=== PATIENT | female | born 1950 | race Caucasian/White ===

== ENCOUNTER → 2022-04-07 14:26 | Outpatient (BNVA) | payer OTHER, SELFPAY | PROVIDERS: Visit Provider Emergency Medicine | DX: M79.622 Pain in left upper arm (principal) | CPT/HCPCS: 73030; 73080 ==

== ENCOUNTER 2025-05-27 16:25 | Emergency (ER) | payer OTHER, SELFPAY ==
[2025-05-27 16:31] VITALS: BP 133/73; PULSE 75; RESP 17; TEMP 36.6; O2SAT 98; BMI 29.2
--- NOTE | 2025-05-27 17:06 | XRR_ITS ---
PROCEDURE INFORMATION: Exam: XR Right Knee Exam date and time: 05/27/2025 5:29 PM Age: 75 years old Clinical indication: Injury or trauma; Fall; Blunt trauma; Knee; Right; Additional info: Fall, injury TECHNIQUE: Imaging protocol: Radiologic exam of the right knee. Views: 1 or 2 views. COMPARISON: CR (LOW EXM, ) 05/27/2025 5:27 PM FINDINGS: Bones/joints: Diminished bone mineralization.No acute fracture or dislocation. Marginal and internal osteophytes. Soft tissues: Normal. XR/XR knee RT 1-2V [id number] IMPRESSION: No acute fracture or dislocation.
--- NOTE | 2025-05-27 17:06 | XRR_ITS ---
PROCEDURE INFORMATION: Exam: XR Right Ankle Exam date and time: 05/27/2025 5:27 PM Age: 75 years old Clinical indication: Injury or trauma; Fall; Blunt trauma; Ankle; Right; Additional info: Fall, injury TECHNIQUE: Imaging protocol: Radiologic exam of the right ankle. Views: 3 or more views. COMPARISON: No relevant prior studies available. FINDINGS: Bones/joints: Diminished bone mineralization.No acute fracture or dislocation. Calcaneal enthesophyte. Soft tissues: Regional soft tissue swelling. XR/XR ankle RT min 3V* [id number] IMPRESSION: No acute fracture or dislocation.
--- NOTE | 2025-05-27 17:06 | XRR_ITS ---
PROCEDURE INFORMATION: Exam: XR Left Ankle Exam date and time: 05/27/2025 5:25 PM Age: 75 years old Clinical indication: Injury or trauma; Fall; Blunt trauma; Ankle; Left; Additional info: Fall, injury TECHNIQUE: Imaging protocol: Radiologic exam of the left ankle. Views: 3 or more views. COMPARISON: No relevant prior studies available. FINDINGS: Bones/joints: Diminished bone mineralization.No acute fracture or dislocation. Calcaneal enthesophyte. Soft tissues: Regional soft tissue swelling. XR/XR ankle LT min 3V* [id number] IMPRESSION: No acute fracture or dislocation.
--- NOTE | 2025-05-27 17:06 | XRR_ITS ---
PROCEDURE INFORMATION: Exam: XR Left Shoulder Exam date and time: 05/27/2025 5:22 PM Age: 75 years old Clinical indication: Injury or trauma; Fall; Blunt trauma (contusions or hematomas); Shoulder; Left; Additional info: Fall, injury TECHNIQUE: Imaging protocol: Radiologic exam of the left shoulder. Views: 2 or more views. COMPARISON: CR XR shoulder LT min 2V* [id number] 04/07/2022 2:40 PM FINDINGS: Bones/joints: Diminished bone mineralization.No acute fracture or dislocation. Reticular sclerotic foci are again seen within the proximal left humerus, similar to prior. Soft tissues: Left axillary surgical clips. XR/XR shoulder LT min 2V* [id number] IMPRESSION: No acute fracture or dislocation.
--- NOTE | 2025-05-27 17:06 | XRR_ITS ---
PROCEDURE INFORMATION: Exam: XR Left Knee Exam date and time: 05/27/2025 5:32 PM Age: 75 years old Clinical indication: Injury or trauma; Fall; Blunt trauma; Knee; Left; Additional info: Fall, injury TECHNIQUE: Imaging protocol: Radiologic exam of the left knee. Views: 1 or 2 views. COMPARISON: CR (LOW EXM, ) 05/27/2025 5:25 PM FINDINGS: Bones/joints: Diminished bone mineralization.No acute fracture or dislocation. Marginal osteophytes are seen. Soft tissues: Normal. XR/XR knee LT 1-2V [id number] IMPRESSION: No acute fracture or dislocation.
--- NOTE | 2025-05-27 17:08 | W.ED.FALL ---
HPI - Fall General: Chief Complaint: Fall Stated Complaint: Fall-everywhere but head Pain Time Seen by Provider: 05/27/25 16:43 History of Present Illness: Patient is a 75-year-old female with hypothyroidism, HLD, presents to the emergency room after a fall at work 04/23. Context: Patient was reaching over to get the phone around a corner, works in a [place] [facility], her foot got tangled in a walker, and she fell with the nursing homes walker to the side, with her forearms out. She has pain in bilateral ankles, bilateral knees, left shoulder, and low back paraspinous pain. No midline tenderness. No right shoulder pain. Wrist appear to be tender with out reduced range of motion. She has full use of bilateral hands. No visual disturbances. She did not have LOC. She did not hit her head or neck. She feels like she has pain in multiple places. Fall from: standing Fall witnessed: yes, by bystander Place fall occurred: work Loss of consciousness: None Symptoms prior to fall: none Context: tripped/slipped (On the [place] [facility] [employer] [place]'s walker) Associated symptoms-after fall: Denies abdominal pain, chest pain, headache(s) or neck pain Related Data Home Medications ?Medication ?Instructions ?Recorded ?Confirmed timolol 0.5 % eye drops 1 drp ophthalmic (eye) BID 04/16/25 04/16/25 Previous Rx's ?Medication ?Instructions ?Recorded atorvastatin 10 mg tablet (Lipitor) 10 mg PO DAILY #90 tabs 04/16/25 gabapentin 600 mg tablet 600 mg PO TID #270 tabs 04/16/25 levothyroxine 75 mcg tablet 37.5 mcg (1/2 x 75 mcg) PO DAILY 04/16/25 (Synthroid) #90 tabs tramadol 50 mg tablet 100 mg (2 x 50 mg) PO TID PRN pain 04/16/25 90 days #540 tabs methocarbamol 500 mg tablet 500 mg PO Q8H PRN muscle spasm #30 05/27/25 tabs Allergies Allergy/AdvReac Type Severity Reaction Status Date / Time aspartame Allergy diarrhea, Verified 04/16/25 15:56 stomach issues Review of Systems Const: Denies: fever(s), change in appetite or fatigue Eyes: Denies: change in vision, blurry vision or eye discharge ENMT: Denies: nasal congestion Card: Denies: chest pain, palpitations or syncope Resp: Denies: dyspnea or non-productive cough GI: Denies: abdominal pain, nausea, vomiting, diarrhea, constipation or hematochezia Musc: Reports: back pain, extremity pain (left arm, mostly upper and shoulder. somewhat vague details), joint pain, joint stiffness, limited range of motion and muscle cramps; Denies: neck pain, extremity swelling, joint swelling, joint redness, joint warmth or muscle weakness Skin/Breast: Denies: rash, pruritus, erythema, skin tenderness or sores Neuro: Denies: headache(s), lack of coordination or dizziness Psych: Denies: anxiety or depression All/Imm: Denies: itchy eyes PFSH ED PFSH: Medical History (Updated 05/27/25 @ 23:40 by JOHANA Araujo) Retinal vein thrombosis, right history of this; Osteoporosis had fosamax 2003 to 2009 Adult onset hypothyroidism Hyperlipidemia, mixed History of left breast cancer Left mastectomy 1997, had chemo and XRT, then Tamoxifen X 5yrs, then Aromasin X 5 yrs (Dr. 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; on tramadol and gabapentin Atherosclerosis of subclavian artery noted on CT angio; it is the subclavian artery where she had port for chemo so likely from that Adenomatous polyp of colon, unspecified part of colon colonoscopy at [facility] 2019--was to repeat 5yrs due to tubular adenoma Peripheral neuropathy due to chemotherapy reason for tramadol and gabapentin Surgical History Hx of colonoscopy with polypectomy 06.03.20--to repeat 5yrs due to adenomas Hx of left mastectomy Hx of tubal ligation History of total abdominal hysterectomy and bilateral salpingo-oophorectomy had a type of cancer on path but was done for benign reasons Family History Sister Breast cancer Father Diabetes mellitus, type 2 CAD (coronary artery disease) Mother CAD (coronary artery disease) Diabetes mellitus, type 2 Social History Smoking and tobacco/nicotine status: never used tobacco/nicotine Alcohol intake: never Substance/Drug Use: never Household members: none Marital status: / Number of children: 6 Highest education level completed: Associate Degree: Academic Program Education level details: RN Current occupational status: employed 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 Reproductive History: Spontaneous abortions: No Physical Exam Const: COMMON NORMALS: no acute distress EXAM LIMITATIONS: no altered mental status GENERAL APPEARANCE: cooperative and well developed; not comfortable ORIENTATION/CONSCIOUSNESS: Yes oriented to person HENMT: COMMON NORMALS: normocephalic and atraumatic HEAD & SCALP: normal to inspection, normocephalic and atraumatic FACE & SINUS: normal facial exam Eye: COMMON NORMALS: EOMs intact bilaterally ALIGNMENT: Yes alignment normal PERIORBITAL: periorbital findings normal EYELID: eyelids normal Neck/C-Spine: COMMON NORMALS: full ROM, no lymphadenopathy and supple GENERAL: Yes normal visual inspection, Yes trachea midline and No tender Resp: COMMON NORMALS: normal respiratory effort and clear to auscultation bilaterally EFFORT & INSPECTION: No abnormal respiratory pattern AUSCULTATION: clear to auscultation bilaterally, no rales, no rhonchi and no wheezes Cardio: COMMON NORMALS: regular rate and regular rhythm RATE: regular rate RHYTHM: regular rhythm GI: COMMON NORMALS: Normal to inspection, nondistended, normoactive bowel sounds present, Soft to palpation, non-tender and No hepatosplenomegaly present PALPATION: Yes Soft to palpation and Yes No hepatosplenomegaly present Extremity: LEFT UPPER EXTREMITY: Yes shoulder joint Left shoulder joint: Yes inspection (no deformity or swelling), Yes palpation (general ttp, mild), Yes ROM (discomfort with rom. ) and Yes neurovascular exam (intact), Yes upper arm (minimally ttp, no deformity) and Yes elbow joint Neuro: SENSORIUM/ORIENTATION: Yes oriented to person Skin: COMMON NORMALS: turgor normal GENERAL SKIN EXAM: elasticity normal, turgor normal, no ecchymo, erythema and no induration RASHES: no rashes TRAUMA: no lacerations or abrasions Course Vital Signs: Vital signs: Vital Signs Temperature 97.9 F 05/27/25 16:31 Pulse Rate 75 05/27/25 16:31 Respiratory Rate 17 05/27/25 16:31 Blood Pressure 133/73 05/27/25 16:31 Pulse Oximetry 98 05/27/25 16:31 Oxygen Delivery Me thod Room Air 05/27/25 16:31 MDM - Fall Medical Decision Making Patient is a 75-year-old female reports to the ED after a fall at work on 04/23. Patient works in a [place], and her feet got caught on her residence walker when she was reaching around to answer the phone. She had a sideways fall, with the extensor surfaces of bilateral arms out. She complained of low back pain, however no midline tenderness. She complained of bilateral knee pain and ankle pain. No fracture was seen on either 1 of these x-rays. She also had pain on palpation of her left shoulder. No acute fracture or dislocation was noted on shoulder as well. Patient has also noted improvement after Toradol, Norflex, dexamethasone on reevaluation. Patient be sent home with methocarbamol, and close follow-up with her primary care physician. Medical Records I reviewed the patient's medical records. Lab Data Radiology Impressions Ankle X-Ray 05/27/25 17:06 IMPRESSION: No acute fracture or dislocation. Knee X-Ray 05/27/25 17:06 IMPRESSION: No acute fracture or dislocation. Shoulder X-Ray 05/27/25 17:06 IMPRESSION: No acute fracture or dislocation. All radiology interpretation(s) finalized by discharge Discharge Plan Discharge Patient Disposition: Home Clinical Impression: Musculoskeletal pain, Contusion Condition: Stable Prescriptions: New methocarbamol 500 mg tablet 500 mg PO Q8H PRN (Reason: muscle spasm) Qty: 30 0RF No Action timolol 0.5 % drops 1 drp ophthalmic (eye) BID tramadol 50 mg tablet 100 mg PO TID PRN (Reason: pain) 90 Days Qty: 540 1RF atorvastatin [Lipitor] 10 mg tablet 10 mg PO DAILY Qty: 90 3RF gabapentin 600 mg tablet 600 mg PO TID Qty: 270 3RF levothyroxine [Synthroid] 75 mcg tablet 37.5 mcg PO DAILY Qty: 90 3RF Discharge Orders: Discharge ED (Routine); Ordered 05/27/25 Ordered By: Susannah Pastor Referrals: Anabel Colmenares MD [Primary Care Provider, Family Practice] Patient Instructions: Muscle Spasm (ED), Patient Portal & [facility] Instructions Activity Restrictions/Additional Instructions: - Ice the areas that cause you pain - Tylenol and ibuprofen taking together are best for pain relief. This can be taken with the rest your medications - At the pharmacy: Methocarbamol/Robaxin a powerful muscle relaxer. This is a lower dose given your age. Please cut in half and make sure you will tolerate it. You do have some sedation effects with association of muscle relaxers - Call your doctor tomorrow for an appointment follow-up for next week. - Return to ED with worsening pain, fever greater than 100.4 ?F Thank you for choosing [facility] for your healthcare needs today. You have been screened and evaluated and felt safe for discharge. Health conditions do change or evolve sometimes and as such it is important that you follow up with your Primary Doctor to be re checked, 3-5 days is a general good time frame for follow up. You are always welcome to return to the ED for re assessment if your symptoms are worsening or you have new concerns Print Language: Croatian Coding Level of Care Code ED Coal Sample Tester for Frankie Pritchett
[2025-05-27] MEDS: orphenadrine 30 mg/mL Inj 2 mL IM (17:24)
--- OUTSIDE RECORDS SUMMARY | 2025-05-27 20:49 | XMS_ITS | Clinical Summary ---
Author Organization [facility] Address [address] [place] [address] Phone Care Team Providers Care Pigment Making Supervisor Name Role Phone Anabel Colmenares MD Primary Care Provider [phone] Allergies No known active allergies Medications levothyroxine (Synthroid, Levoxyl) 25 mcg tablet Take 37.5 mcg by mouth 1 (one) time each day before breakfast. Active gabapentin (Neurontin) 600 mg tabletIndication s:neuropathic pain Take 600 mg by mouth 3 (three) times a day. Active traMADoL (Ultram) 50 mg tabletIndication s:neuropathic pain Take 50 mg by mouth 3 (three) times a day. Active Active Problems Problem Noted Date Diagnosed Date Gastroesophageal reflux disease 03/18/2023 03/18/2023 Hypothyroidism 03/18/2023 03/18/2023 Hyperlipidemia 03/18/2023 03/18/2023 Osteoporosis 03/18/2023 03/18/2023 SBO (small bowel obstruction) 03/18/2023 Social History Tobacco Use Types Packs/Day Years Used Date Smoking Tobacco: Never Smokeless Tobacco: Never Tobacco Cessation:Counseling Given: Not Answered Alcohol Use Standard Drinks/Week Comments Never 0 (1 standard drink = 0.6 oz pur e alcohol) [facility] Utilities Answer Date Recorded In the past 12 months has e [employer], gas, oil, or water [employer] threatened to shut off services in your home? No 03/19/2023 Humiliation, Afraid, Rape, and Kick questionnair e Answer Date Recorded Within the last year, have y ou been afraid of your partner or ex-partner? No 03/19/2023 Within the last year, have y ou been humiliated or emotionally abused in other ways by your partner or ex-partner? No Within the last year, have y ou been kicked, hit, slapped, or otherwise physically hurt by your partner or ex-partner? No 03/19/2023 Within the last year, have y ou been raped or forced to have any kind of sexual activity by your partner or ex-partner? No 03/19/2023 Overall Financial Resource Strain (CARDIA) Answe r Date Recorded How hard is it for you to pa y for the very basics like food, housing, medical care, and heating? Not hard at all 03/19/2023 Hunger Vital Sign Answer Date Recorded Within the past 12 months, y ou worried that your food would run out before you got the money to buy more. Never true 03/19/20 23 Within the past 12 months, t he food you bought just didn't last and you didn't have money to get more. Never true 03/19/2023 PRAPARE - Transportation Answer Date Re corded In the past 12 months, has l ack of transportation kept you from medical appointments or from getting medications? No 07/2022 In the past 12 months, has l ack of transportation kept you from meetings, work, or from getting things needed for daily living? No 03/19/2023 Housing Stability Vital Sign Answer Jung e Recorded In the last 12 months, was t here a time when you were not able to pay the mortgage or rent on time? No 03/19/2023 In the last 12 months, how many places have you lived? 1 03/19/2023 In the last 12 months, was t here a time when you did not have a steady place to sleep or slept in a fci (including now)? No 03/19/2023 Comments Unknown Sex and Gender Information Value Date Recorded Sex Assigned at Female 03/18/2023 6:45 PM CDT Legal Sex Female 4:11 PM CDT Gender Identity Not on file Sexual Orientation Straight 03/18/2023 6: 45 PM CDT Last Filed Vital Signs Vital Sign Reading Time Taken Comments Blood Pressure 147/69 03/22/2023 10:19 AM CDT Pulse 70 03/22/2023 10:19 AM CDT Temperature 36.9 C (98.4 F) 03/22/2023 10:19 AM CDT Respiratory Rate 18 03/22/2023 10:19 AM CDT Oxygen Saturation 95% 03/22/2023 10:19 AM CDT Inhaled Oxygen Concentration - - Weight 74.5 kg (164 lb 3.9 oz) 03/21/2023 6:00 A M CDT Height 157.5 cm (5' 2 ) 03/18/2023 6:59 PM CDT Body Mass Index 30.04 03/18/2023 6:59 PM CDT Plan of Treatment Health Maintenance Due Date Last Done Comments CT Colonography 1952 Colonoscopy 1952 Colorectal Cancer Screening 1952 FIT-DNA 1952 FIT 1952 FOBT 1952 Sigmoidoscopy 1952 MMR Vaccines (1 of 1 - Standard series) 1953 Varicella Vaccines (1 of 2 - 13+ 2-dose series) 1965 Depression Screening 1970 Social Drivers of Health (SDoH) 1970 Mammogram 1992 Zoster Vaccines (1 of 2) 2002 Complete Fall Risk Assessment 2017 DTaP,Tdap,and Td Vaccines (3 - Td or Tdap) 08/27/2023 02/26/2023, 02/12/2003 COVID-19 Vaccines (1 - season) 2025 Influenza Vaccine (#1) 2025 RSV Vaccines (1 - 1-dose 75+ series) 2027 Pneumococcal Vaccines: 50+ Years Completed 11/24/2022 HIB Vaccines Aged Out No longer eligi ble based on patient's age to complete this topic HPV Vaccines Aged Out No longer eligi ble based on patient's age to complete this topic Hepatitis A Vaccines Aged Out No long er eligible based on patient's age to complete this topic Hepatitis B Vaccines Aged Out No long er eligible based on patient's age to complete this topic IPV Vaccines Aged Out No longer eligi ble based on patient's age to complete this topic Meningococcal B Vaccine Aged Out No l onger eligible based on patient's age to complete this topic Meningococcal Vaccine Aged Out No glory yu eligible based on patient's age to complete this topic Rotavirus Vaccines Aged Out No longer eligible based on patient's age to complete this topic Insurance [employer] MEDICARE ADVANTAGE Advance Directives For more information, please contact: [phone] (7:30 AM - 5PM [facility], 7 days a week) * Full Code (Latest Code Status on File) Date Activated Date Inactivated Comments 03/18/2023 7:35 PM 03/22/2023 2:51 PM Care Teams Pigment Making Supervisor Relationship Specialty Start Date End Date Anabel Colmenares MD [address] [place] [address] PCP - General Family Medicine 03/18/23
--- OUTSIDE RECORDS SUMMARY | 2025-05-27 20:49 | XMS_ITS | Clinical Summary ---
Author Organization [facility] Address [address] [place]: Epic Prelude ADT [place]AL [place]Y [address] Care Team Providers Care Director Of Dance Name Role Phone Unavailable Primary Care Provider Unavailabl e Allergies No known active allergies Medications brimonidine-jenifer oloL (Combigan) 0.2-0.5 % solution INSTILL 1 DROP IN BOTH EYES TWICE DAILY 11 02/12/2018 Active Active Problems Problem Noted Date Diagnosed Date Acute pain of both shoulders 11/16/2017 Pain of right sacroiliac joint 10/29/2017 Trapezius strain, left, initial encounter 2017 Hip pain, acute, right 08/24/2017 Foot pain, right 08/24/2017 Social History Tobacco Use Types Packs/Day Years Used Date Smoking Tobacco: Never Smokeless Tobacco: Never Comments Unknown Sex and Gender Information Value Date Recorded Sex Assigned at Not on file Legal Sex Female 12:13 PM TAX INTERN Gender Identity Not on file Sexual Orientation Not on file Last Filed Vital Signs Vital Sign Reading Time Taken Comments Blood Pressure 135/79 04/15/2018 10:06 AM CDT Pulse 66 04/15/2018 10:06 AM CDT Temperature - - Respiratory Rate 18 04/15/2018 10:06 AM CDT Oxygen Saturation - - Inhaled Oxygen Concentration - - Weight 72.6 kg (160 lb) 04/15/2018 10:06 AM CDT Height 157.5 cm (5' 2 ) 04/15/2018 10:06 AM CDT Body Mass Index 29.26 04/15/2018 10:06 AM CDT Plan of Treatment Health Maintenance Due Date Last Done Comments DTAP/TDAP/TD VACCINES (1 - Tdap) 1971 BREAST CANCER SCREENING 1992 COLORECTAL SCREENING 1997 Colorectal Cancer Screening 1997 FIT-DNA Q 3 years 1997 FIT/FOBT Q 1 year 1997 Flex Sig/CT Colonography Q 5 years 1997 PNEUMOCOCCAL VACCINE 50+ YEARS (1 of 1 - PCV) 03/04/20 02 ZOSTER VACCINE (1 of 2) 2002 OSTEOPOROSIS SCREENING 2017 INFLUENZA VACCINE (#1) 2025 RSV VACCINE (60+ or ) (1 - 1-dose 75+ series) 2027
--- OUTSIDE RECORDS SUMMARY | 2025-05-27 20:49 | XMS_ITS | Clinical Summary ---
Author Organization [facility] [address] Address [address] [place] [address] Care Team Providers Care Yarn Wrapper Name Role Phone Unavailable Primary Care Provider Unavailabl e Allergies No known active allergies Medications COMBIGAN 0.2-0.5 % solution INSTILL 1 DROP IN BOTH EYES TWICE DAILY 11 02/12/2018 Active Active Problems Problem Noted Date Diagnosed Date Acute pain of both shoulders 11/16/2017 Pain of right sacroiliac joint 10/29/2017 Trapezius strain, left, initial encounter 2017 Foot pain, right 08/24/2017 Hip pain, acute, right 08/24/2017 Social History Tobacco Use Types Packs/Day Years Used Date Smoking Tobacco: Never Smokeless Tobacco: Never Comments Unknown Sex and Gender Information Value Date Recorded Sex Assigned at Not on file Legal Sex Female 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
== END 2025-05-27 19:00 | disposition home or self-care (01) ==
PROVIDERS: Emergency Provider Physician Assistant; PCP Family Medicine
DX: M25.512 Pain in left shoulder (principal); M25.562 Pain in left knee; M25.561 Pain in right knee; M25.572 Pain in left ankle and joints of left foot; M25.571 Pain in right ankle and joints of right foot; E78.2 Mixed hyperlipidemia; Z85.3 Personal history of malignant neoplasm of breast
CPT/HCPCS: 73030; 73560; 73610; 96372; 99284; J1885; J2360